=== PATIENT | female | born 1945 | race Caucasian/White ===

== ENCOUNTER 2016-08-16 17:55 | Inpatient (IN) | payer OTHER ==
[~2016-08-16] VITALS: Ht 165.1 cm; Wt 74.8 kg
--- NOTE | ~2016-08-16 | HC ---
[facility] [place] [address] CONSULTATION Name: LEISA COSTELLO Room #: 314-P [facility] IN M.R.#: [id number] Admission: 08/16/16 Attend Phys: Demar Gil MD Discharge: 08/18/16 Date of : 45 Report #: [id number] THIS REPORT FOR: //name// CC: [facility] physician/PCP Demar Welch HISTORY OF PRESENT ILLNESS: The patient is a 70-year-old white female who was admitted with double vision, blurred vision, and frequent falls. She is a little vague on how often she falls, but at least once a month. She has a history of being noncompliant with her blood pressure medications and per progress note, she has not seen her primary care physician for the last couple of years. She was noted to have a hypertensive emergency 197/112 upon admission. Neurology saw her and workup revealed an acute lacunar infarct right caudate with multiple small remote lacunar infarcts bilaterally, multiple small cerebral hemorrhages and occipital and parietal hemorrhages, all thought to be hypertensive related strokes. She was noted to have significant decreased balance, functional mobility, and ADLs and we are seeing her in rehabilitation medicine consultation. PAST MEDICAL HISTORY: Includes hypertension, tobacco abuse and recurrent falls. HABITS: Current every day smoker, 1 pack per day, smoked for 46-phlg-llyx history. No history of alcohol abuse. ALLERGIES: No known drug allergies. SOCIAL HISTORY: Lives in a house with her daughter, 2 steps in, apparently used a walker, although it sounds like she did not use it as much as she should have. Daughter is noted to be home during the day. REVIEW OF SYSTEMS: Did not offer any current complaints of chest pain, shortness of breath, or abdominal discomfort. Notes concern regarding her balance. Tends to minimizing her symptoms from what I can gather. No focal extremity pain complaints. HEENT, no complaints were verbalized. No other system complaints. PHYSICAL EXAMINATION: GENERAL: A 70-year-old white female, in no obvious distress. She is alert and pleasant. VITAL SIGNS: Temperature 98.3, pulse , respirations 16, and blood pressure 177/72. NEUROLOGIC: She is alert and pleasant. Affect a little flat. Facies appeared symmetric. EOMs, she may have some mild decreased with her gaze being conjugate. She follows basic commands without difficulty. EXTREMITIES: Functional range of motion of both upper extremities. Some mild decreased with yygexd-fq-rhcy and higher level dexterity bilaterally. Strength [facility] [address] [place] [address] CONSULTATION Name: LEISA COSTELLO Room #: 314-P [facility] IN [facility].#: [id number] Admission: 08/16/16 Attend Phys: Demar Gil MD Discharge: 08/18/16 Date of : 45 Report #: [id number] otherwise is grade 4-/5. Lower extremities, no focal calf swelling, functional range of motion with strength a grade 4-/5. DTRs are trace to 1. She might have some mild decreased coordination in the bilateral lower extremity. Sensation appeared reasonably intact to simultaneous stimulation. She is contact guard with sit to stand. She does ambulate, but needs min assist with a front-wheeled walker and was noted to have 5 slight losses of balance at left, especially with turns. In occupational therapy, she was noted to have poor standing balance with mod assist needed for upper body dressing. ASSESSMENT: A 70-year-old white female with the following problem list: 1. Multiple hypertensive related strokes. 2. Lacunar infarct, right caudate with multiple remote lacunar bilateral infarcts, small cerebral, occipital and parietal hemorrhages that are multiple. 3. Hypertensive emergency upon initial admission. 4. Tobacco abuse. 5. Noncompliance with blood pressure medication. 6. History of frequent falls at home. PLAN: The patient is a candidate and would benefit from an acute in-hospital inpatient rehabilitation stay. From a preadmission screening perspective: 1. Prior level of function is well delineated above. 2. Expect level of improvement would be for the patient to become modified independent with transfers, mobility and ADLs as well as an assessment of cognition to try to improve her overall functional level. We would anticipate a length of stay of probably at least 10 days to 2 weeks pending progress. 3. Evaluation of the patient's risk for clinical complications. She does have multiple medical comorbidities as noted above. 4. Condition that caused the need for rehabilitation is the multiple strokes. 5. Treatments needed include PT and OT 1-1/2 hours per day each five days a week throughout the duration of the acute inpatient rehabilitation stay. 6. Anticipated discharge destination would be back to the home setting. 7. Anticipated post-discharge treatments would include home healthcare therapies. 8. The patient meets diagnostic criteria for an acute in-hospital inpatient rehabilitation stay. Thank you for asking us to assist in this patient's care. By: [id number] Low Pulliam MD /nt
--- NOTE | ~2016-08-16 | EKG ---
[place] [address] [facility] [place] [address] ELECTROCARDIOGRAM REPORT Name: LEISA COSTELLO Room #: 314-P ADM IN M.R.#: [id number] Admission: 08/16/16 Attend Phys: Jessica Valenzuela MD Discharge: Date of : 45 Report #: [id number] THIS REPORT FOR: //name// [facility] ED Test Date: 2016-08-16 Test Time: 19:44:47 Pat Name: LEISA COSTELLO Department: Room: [facility] Gender: F Inside Sales: [id number] : 1945 Requested By: Larry Hanson Order Number: [id number] MD: Primo Diego Measurements Intervals [place] Rate: 70 P: 33 WI: 139 QRS: -22 QRSD: 102 T: 93 QT: 465 QTc: 502 Interpretive Statements Sinus rhythm Probable left atrial enlargement LVH with secondary repolarization abnormality Inferior infarct, old Prolonged QT interval Baseline wander in lead(s) V3 No previous ECG available for comparison Electronically Signed On 08-17-2016 8:57:23 CDT by Primo Diego [email or web address] <ELECTRONICALLY SIGNED> By: Primo Diego MD, [facility] 08/17/16 0857 43 43 Primo Diego MD, [facility] /EPI
--- NOTE | ~2016-08-16 | 2DMMODE ---
[facility] [address] [place] [address] 2 D/M-MODE ECHOCARDIOGRAM Name: LEISA COSTELLO Room #: 314-P ADM IN .R.#: [id number] Admission: 08/16/16 Attend Phys: Demar Gil MD Discharge: Date of : 45 Date of Service: 08/18/16 0931 Report #: [id number] THIS REPORT FOR: //name// APPROVED REPORT Study performed: 08/18/2016 08:30:28 EXAM: Comprehensive 2D, Doppler, and color-flow Echocardiogram Patient Location: Bedside Room #: 314 Blood Pressure: 177/72 mmHg HR: 80 bpm Other Information Study Quality: Adequate Indications CVA/TIA Hypertension/HDD Echo Enhancing Agent Indication: Rule out Shunt Agent/Amount Used: Agitated Saline 7 cc 2D Dimensions LVEF(%): 69.73 (>50%) IVSd: 14.80 (7-11mm) LVOT Diam: 19.81 (18-24mm) LVDd: 39.54 mm PWd: 12.83 (7-11mm) Ascending Aorta: 27.67 mm LVDs: 24.22 (25-40mm) IVC: 15.00 mm Aortic Root: 27.38 mm Pratt's LVEF: 69.73 % Volumes Left Atrial Volume (Systole) Single Plane 4CH: 44.49 mL Single Plane 2CH: 39.72 mL LA ESV Index: 25.00 mL/m2 Aortic Valve AoV Peak Maurilio.: 2.63 m/s AO Peak Gr.: 12.74 mmHg LV Max P.17 mmHg AO Mean Gr.: 17.49 mmHg LV Mean P.19 mmHg LV Max: 1.54 m/s [facility] [employer] [address] [place] [address] 2 D/M-MODE ECHOCARDIOGRAM Name: LEISA COSTELLO Room #: 314-P [facility] IN .R.#: [id number] Admission: 08/16/16 Attend Phys: Demar Gil MD Discharge: Date of : 45 Date of Service: 08/18/16 0931 Report #: [id number] AO V2 VTI: 570.70 mm LV Mean: 1.17 m/s JORGE (VTI): 2.06 cm2 LV V1 VTI: 381.94 mm SV (LVOT): 117.71 mL Mitral Valve E/A Ratio: 0.6 MV Decel. Time: 307.55 ms MV E Max Maurilio.: 0.81 m/s MV A Maurilio.: 1.35 m/s MV PHT: 89.19 ms Pulmonary Valve PV Peak Maurilio.: 0.91 m/s PV Peak Gr.: 3.29 mmHg Pulmonary Vein P Vein S: 46.5 m/s P Vein D: 33.5 m/s P Vein A Dur.: 30.5 m/s PVa Duration: 129 Tricuspid Valve RAP Estimate: 5.00 mmHg Left Ventricle The left ventricle is normal size. There is normal LV segmental wall motion. Moderate concentric left ventricular hypertrophy. Left ventricular systolic function is hyperdynamic. LVEF is >70%. Grade I diastolic dysfunction Right Ventricle Right ventricle is not well visualized. The right ventricular systolic function appears normal. Atria The left atrium size is normal. Right atrium is not well visualized. Aortic Valve Aortic valve is calcified. Mild aortic stenosis (peak gradient 27mm, mean 17mm). Mitral Valve The mitral valve is normal in structure. Mild mitral valve regurgitation noted. No evidence of mitral valve stenosis. Tricuspid Valve The tricuspid valve is normal in structure. There is no tricuspid [facility] [address] [place] [id number] 2 D/M-MODE ECHOCARDIOGRAM Name: LEISA COSTELLO Room #: 314-P ADM IN .R.#: [id number] Admission: 08/16/16 Attend Phys: Demar Gil MD Discharge: Date of : 45 Date of Service: 08/18/16 0931 Report #: [id number] valve regurgitation noted. There is tricuspid regurgitation. The right atrial pressure is estimated at 5 mmHg. There is no pulmonary hypertension. Pulmonic Valve The pulmonary valve is normal in structure. There is no pulmonic valvular regurgitation. Great Vessels The aortic root is normal in size. IVC is normal in size and collapses >50% with inspiration. Pericardium There is no pericardial effusion. <Conclusion> Moderate concentric left ventricular hypertrophy. There is normal LV segmental wall motion. LVEF >70%. Grade I diastolic dysfunction Aortic valve is calcified. Mild aortic stenosis (peak gradient 27mm, mean 17mm). The mitral valve is normal in structure. Mild mitral valve regurgitation There is no pericardial effusion. <ELECTRONICALLY SIGNED> By: Primo Diego MD, FACC 08/18/16930 0 0 Primo Diego MD, FACC /INF
[~2016-08-16 17:55] MED LIST: PENICILLIN VK500 M1 PO
[2016-08-16 17:59] VITALS: BP 197/120
[2016-08-16] MEDS ORDERED: OCUVITE TABLET1 EAC1 PO (18:01)
[2016-08-16] MEDS ORDERED: MUCINEX TA600 MG/TA2 PO (18:01)
[2016-08-16] MEDS ORDERED: DIUREX WATER P1 EACH PO (18:01)
[2016-08-16 20:00] LABS: ABSOLUTE NEUTROPHILS 8.3 thou/uL (1.4-8.2); BASOPHILS 0.5 % (0.0-2.0); EOSINOPHILS 1.4 % (0.0-3.0); HEMATOCRIT 44.1 % (37.0-47.0); HEMOGLOBIN 14.5 gm/dL (12.0-15.0); LYMPHOCYTES 27.7 % (24.0-44.0); MCH 28.2 pg (26.0-34.0); MCV 85.5 fL (80.0-100.0); PLATELET COUNT 300 thou/uL (150-400); POLYS 62.4 % (36.0-66.0); RBC 5.16 mil/uL (4.20-5.00); WBC 13.4 thou/uL (4.0-11.0)
[2016-08-16 20:01] LABS: MANUAL DIFF NO
[2016-08-16 20:13] LABS: CALCIUM 8.8 mg/dL (8.5-10.1); CREATININE 0.7 mg/dL (0.6-1.0); POTASSIUM 3.5 mmol/L (3.5-5.1)
[2016-08-16 20:20] LABS: ALBUMIN 3.7 g/dL (3.4-5.0); TOTAL BILIRUBIN 0.3 mg/dL (<0.1-1.0); TOTAL PROTEIN 7.4 g/dL (6.4-8.2)
[2016-08-16 20:32] LABS: PROTIME 10.6 Seconds (9.3-11.4)
[2016-08-16 20:51] LABS: URINE BILIRUBIN NEGATIVE (Negative); URINE BLOOD 1+ (Negative); URINE COLOR YELLOW; URINE GLUCOSE-RANDOM* NEGATIVE (Negative); URINE KETONES 1+ (Negative); URINE LEUKOCYTES-REFLEX NEGATIVE (Negative); URINE PROTEIN (DIPSTICK) NEGATIVE (Negative); URINE UROBILINOGEN 0.2 E.U./dl (0.2-1.0)
[2016-08-16 21:01] LABS: CASTS None Seen /LPF (None Seen); CRYSTALS None Seen /LPF (None Seen); SQUAMOUS 4-10 Moderate /LPF (0-3); URINE RBC 0-2 Rare /HPF (0-2); URINE WBC-REFLEX 6-15 Few /HPF (0-5)
[2016-08-16 22:33] VITALS: BP 187/74
[2016-08-16 23:22] VITALS: BP 176/80
[2016-08-17 00:17] LABS: TSH 1.479 uIU/mL (0.358-3.740)
[2016-08-17 00:27] VITALS: BP 156/66
[2016-08-17 03:05] VITALS: BP 147/59
[2016-08-17 07:56] LABS: CHOLESTEROL 167 mg/dL (<200); HDL CHOLESTEROL 51 mg/dL (>40); LDL CHOLESTEROL 103 mg/dL (<100); TC:HDL 3.3 Ratio (Not establshd); TRIGLYCERIDE 68 mg/dL (<150); VLDL 14 mg/dL (<40)
[2016-08-17 08:32] VITALS: BP 176/69
[2016-08-17] MEDS ORDERED: CULTURELLE1 EACH PO (13:36)
[2016-08-17] MEDS ORDERED: COQ-10100 MG PO (13:37)
[2016-08-17] MEDS ORDERED: [UNRECOGNIZED DRUG - OTHER] (13:41)
[2016-08-17 17:34] VITALS: BP 184/79
[2016-08-17 19:18] VITALS: BP 156/73
[2016-08-18 04:36] VITALS: BP 175/78
[2016-08-18 07:42] VITALS: BP 177/72
[2016-08-18 13:23] VITALS: BP 137/64
[2016-08-18] MEDS ORDERED: KEFLEX500 MG PO (13:27)
[2016-08-18] MEDS ORDERED: LIPITOR10 MG PO (13:27)
[2016-08-18] MEDS ORDERED: LISINOPRIL5 MG PO (13:27)
[2016-08-18] MEDS ORDERED: ASPIR 8181 MG PO (15:01)
== END 2016-08-18 15:15 | DRG 65 ==
LOC: ER 17:55 → 3N 21:49 → EROBS 21:49 → 3N 23:11
PROVIDERS: Nurse Practitioner; Physician Assistant; Psychiatry & Neurology Neurology
DX: I63.8 Other cerebral infarction (principal); N39.0 Urinary tract infection, site not specified; I16.1 Hypertensive emergency; I10 Essential (primary) hypertension; F17.210 Nicotine dependence, cigarettes, uncomplicated; E78.5 Hyperlipidemia, unspecified; H53.8 Other visual disturbances; W18.39XA Other fall on same level, initial encounter; Z91.14 Patient's other noncompliance with medication regimen; Z82.3 Family history of stroke; Y93.89 Activity, other specified; Y92.89 Other specified places as the place of occurrence of the external cause; Z86.73 Personal history of transient ischemic attack (TIA), and cerebral infarction without residual deficits; Y99.8 Other external cause status
CPT/HCPCS: 10096

== ENCOUNTER 2016-08-18 13:19 | Inpatient (IN) | payer OTHER ==
[~2016-08-18] VITALS: Ht 165.1 cm; Wt 76.4 kg
--- NOTE | ~2016-08-18 | H ---
[facility] [place] [place] [address] HISTORY AND PHYSICAL Name: LEISA COSTELLO Room #: 515-P ADM IN M.R.#: [id number] Admission: 08/18/16 Attend Phys: Low Pulliam MD Discharge: Date of : 45 Report #: [id number] THIS REPORT FOR: //name// CC: Low Pulliam [facility] physician/PCP DATE OF SERVICE: 08/18/2016 HISTORY OF PRESENT ILLNESS: The patient is a 70-year-old white female who was originally admitted to [facility] with blurred vision and double vision and history of frequent falls. She indicates she was falling at least once per month. There is a history of noncompliance with her blood pressure medication and she apparently had not seen her primary care physician for approximately 2 years. On admission, she was noted to have a hypertensive emergency with blood pressure 197/112. Neurology was involved and workup revealed an acute lacunar infarct of the right caudate. She also was noted to have multiple small remote lacunar infarcts bilaterally and was noted to have multiple cerebellar, occipital and parietal hemorrhages consistent with hypertensive related strokes. The patient was noted to have significant functional mobility and ADL deficits, cognitive concerns as well and has now been admitted for acute in-hospital inpatient rehabilitation. PAST MEDICAL HISTORY: Includes hypertension, tobacco abuse, and recurrent falls. HABITS: Current every day smoker, 1 pack per day, smoked for 11-tqac-cynu history. No history of alcohol abuse. ALLERGIES: No known drug allergies. SOCIAL HISTORY: Lives in a house with her daughter, 2 steps in, apparently used a walker, although it sounds like she did not use it as much as she should have. Daughter is noted to be home during the day. I did not confirm the above noted fall frequency with the daughter. MEDICATIONS: Please see the full medication listing. Each of these was individually reconciled and includes her medications, supplements, srhn-dun-rxktktke, etc. REVIEW OF SYSTEMS: No complaints of chest pain, shortness of breath or abdominal discomfort. No complaints of voiding. Did not offer any headache or HEENT complaints. Has had problems with decreasing balance. PHYSICAL EXAMINATION: GENERAL: A 70-year-old white female, in no obvious distress. She was seen earlier and was somewhat sleepy. [address] [address] HISTORY AND PHYSICAL Name: LEISA COSTELLO Room #: 515-P [facility] IN M.R.#: [id number] Admission: 08/18/16 Attend Phys: Low Pulliam MD Discharge: Date of : 45 Report #: [id number] VITAL SIGNS: Temperature 37.1, pulse 71, respirations 18, and blood pressure 168/74. HEENT: Appeared to be benign. Facies were symmetric. NEUROLOGIC: Follows basic commands without difficulty. EOMs, some mild decreased with her gaze being conjugate. EXTREMITIES: She has functional range of motion of both upper extremities. Some mild decreased nqtscg-zu-vjca and higher level dexterity bilaterally, strength otherwise is a grade 4-/5. Lower extremities, no focal calf swelling, functional range of motion with strength a grade 4-/5. DTRs are trace to 1. She has some mild decreased coordination of the bilateral lower extremities. Sensation appeared reasonably intact to simultaneous stimulation. She was noted to be contact guard with vzo-yr-kgzcx. She was able to ambulate, but has needed assistance with her balance and was noted to have frequent loss of balance when attempting to get up. There is no focal calf swelling. No distal lower extremity edema. Her feet appear warm with descent vascular supply and no neurovascular changes. ASSESSMENT: A 70-year-old white female with the following problem list: 1. Multiple hypertensive related strokes. 2. Lacunar infarct right caudate with multiple remote lacunar bilateral infarcts, small cerebral, occipital and parietal hemorrhages that are multiple. 3. Hypertensive emergency upon initial admission. 4. Tobacco abuse. 5. Noncompliance with blood pressure medication. 6. History of frequent falls at home. PLAN: The patient was admitted for an acute in-hospital inpatient rehabilitation stay. From a postadmission physician evaluation perspective, there are no relevant changes since the preadmission screening. Please see the above review of prior and current medical and functional conditions and comorbidities. Please see the patient's previous and current functional status. As far as risk of complications, she has the above noted comorbidities. Initial plan of care involves the interdisciplinary acute inpatient rehabilitation program with the goal of maximizing her functional independence, so she can hopefully return back to her prior living situation. Measurable functional goals would be for her to become modified independent at least at the walker level with mobility and ADLs as well as further assessment regarding cognition. Prognosis is reasonably good with estimated length of stay probably 10 days to 2 weeks. We will need to assess her cognitive and safety issues for returning back to the home setting. Goal is to return back home with her daughter. Potential barriers would include her decreased balance, concerns regarding safety issues and her multiple comorbidities. The patient meets diagnostic criteria for an acute in-hospital inpatient rehabilitation stay. She meets medical necessity criteria and we will have the [address] [address] HISTORY AND PHYSICAL Name: LEISA COSTELLO Room #: 515-P ADM IN M.R.#: [id number] Admission: 08/18/16 Attend Phys: Low Pulliam MD Discharge: Date of : 45 Report #: [id number] skin care consultant physicians continue to follow while she is on the rehab trujillo. She does have the tolerance for an acute inpatient rehab stay and has appropriate discharge goals back to the home setting. <ELECTRONICALLY SIGNED> By: Low Pulliam MD 08/29/16 1523 1031 1114 Low Pulliam MD /nt
--- NOTE | ~2016-08-18 | PLAN ---
[facility] [place] [address] REHAB UNIT PLAN OF CARE Name: LEISA COSTELLO Room #: 515-P ADM IN M.R.#: [id number] Admission: 08/18/16 Attend Phys: Low Pulliam MD Discharge: Date of : 45 Report #: [id number] THIS REPORT FOR: //name// CC: Low Pulliam [facility] physician/PCP The patient is seen back today in followup. She is in no distress. Temperature , pulse 64, respirations 19, blood pressure 159/76. The patient is alert. HEENT appeared to be benign. Facies are symmetric. No focal calf swelling. She is working in therapies with transfers, contact guard. She is ambulating up to 75 feet contact guard with a front-wheeled walker. We are working with her on balance issues, especially with turns. She has had a left-sided lean. Lower body dressing has been contact guard. In speech therapy, she has mild comprehensive deficits with mild expressive deficits. ASSESSMENT: 1. Multiple hypertensive related strokes. 2. Lacunar infarct right caudate with multiple remote lacunar bilateral infarcts, small cerebral occipital and parietal hemorrhages that are multiple. 3. Initial hypertensive emergency, upon prior admission. 4. Tobacco abuse. 5. Noncompliance with blood pressure medication. 6. History of frequent falls at home. PLAN: The overall plan of care is based on the preadmission screen, post-admission physician evaluation and information garnered from therapy assessments. 1. Estimated length of stay is probably 10 days to two weeks pending progress. She is progressing. 2. Medical prognosis is reasonably good. 3. Anticipated interventions includes the interdisciplinary acute inpatient rehabilitation program with PT and OT and speech working with her, rehab nursing assisting regarding medication management, skin care prophylaxis, bowel and bladder issues and nursing education. Case management is involved as well as the road consultant physicians. 4. Anticipated functional outcomes would be for the patient to become modified independent with transfers, mobility and ADLs as well as improved cognition, so that she can hopefully return back to her prior living situation. 5. Discharge destination would be back to the home setting where the patient lives with her daughter. 6. Expected therapy by discipline includes PT and OT and speech 1 hour per day each five days a week throughout the duration of the acute inpatient stay. <ELECTRONICALLY SIGNED> By: Low Pulliam MD 08/29/16 1523 0938 1135 Low Pulliam MD /nt
--- NOTE | ~2016-08-18 | HC ---
[facility] [place] [address] CONSULTATION Name: LEISA COSTELLO Room #: 515-P ADM IN M.R.#: [id number] Admission: 08/18/16 Attend Phys: Low Pulliam MD Discharge: Date of : 45 Report #: [id number] THIS REPORT FOR: //name// CC: Low Pulliam [facility] physician/PCP DATE OF SERVICE: 08/26/2016 NEUROBEHAVIORAL STATUS EXAM AGE: 70. ATTENDING PHYSICIAN: Low Pulliam MD DIE MAINTENANCE TECHNICIAN: Andrei Flanagan, PhD CLINICAL PRESENTATION: The patient is a 70-year-old female admitted to [facility] rehab unit for comprehensive inpatient rehabilitation program to improve functional mobility and activities of daily living and self-care secondary to deficits from a cerebrovascular accident. She was admitted after increasing episodes of falling. She was diagnosed with a hypertensive emergency with a blood pressure of 197/117 when she was brought into the hospital. An acute lacunar infarction in the right caudate was identified. Brain imaging also revealed multiple small remote lacunar infarctions bilaterally with multiple cerebral, occipital, and parietal hemorrhages consistent with hypertensive strokes. Significant functional mobility and ADL deficits along with cognitive concern were noted on admission. Her past medical history includes hypertension, tobacco abuse, and recurrent falls. The assessment on the rehab unit is multiple hypertensive related strokes, lacunar infarction in the right caudate with multiple remote lacunar bilateral infarctions and small cerebellar, occipital and parietal hemorrhages. Additional diagnoses include tobacco abuse, noncompliant with diabetes management, and frequent falls. Neuropsychological consultation was requested to provide assistance in the assessment of cognitive and emotional status and to provide recommendations and services. The patient reports living with her daughter prior to her admission. She is with one child. Patient is a high school graduate. She worked for the [employer] prior to her jail. She does not report a prior history of treatment for depression or anxiety and denies alcohol or drug abuse. The patient does report tobacco use and a plan to return to smoking upon her discharge. TECHNIQUES UTILIZED: Clinical interview, review of medical records, staff consultation and behavioral observation, mini mental status exam [address] [address] CONSULTATION Name: LEISA COSTELLO Room #: 515-P [facility] IN M.R.#: [id number] Admission: 08/18/16 Attend Phys: Low Pulliam MD Discharge: Date of : 45 Report #: [id number] version, clock drawing and calibrated ideational fluency assessment (letter and category fluency). EXAMINATION FINDINGS: The patient was alert and cooperative with the assessment. She accurately described events leading to her hospitalization. Patient is lacking insight into symptoms of cognitive disorder. She does not report difficulty with cognitive functioning, sleep or appetite. She states that her energy level is low and that she is feeling increased anxiety. Irritability and anxiety is reported as related to tobacco cessation. She does not report auditory or visual hallucinations. There is no evidence of aphasia. Her performance on the MMSE 2 brief version is within normal limits with a raw score of 16/16. Performance on the standard version of the MMSE 2 was within normal limits in the average range with a raw score of 26 of 30. The patient was 1/5 for serial sevens, suggesting diminished ability to sustain concentration. The patient was able to copy a simple geometric design. The patient was able to draw a clock, but had difficulty in hand placement, the hands were placed instead at 10 and 11 rather than 10 after 11 suggesting both stimulus bound effects and diminished thought organization and problem solving. Her performance in letter fluency was in the borderline range with a raw score of 11, T score of 30, and percentile rank of 2. Performance in category fluency was extremely low with a raw score of 19 and a T score of 19, which is severely impaired. Overall, total fluency was severely impairmed with a raw score of 30 and a percentile rank of less than 1. 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 RECOMMENDATIONS: The patient will benefit from a structured and supervised rehab program. The use of compensatory strategies to assist in executive functioning as well as immediate recall will be of benefit to overall adjustment. She will need assistance with management of her medication. At this time, she indicates setting up medicine herself; however, the extent of her neurocognitive deficits indicate the need for her daughter to assist with medical management. Patient is reportiong plans to resume somking and family will need to discourage use. A follow up neuropsych assessment in approximately one month may be of benefit to clarify deficits in cognition and further assess for neurodegenerative disorder. [address] [address] CONSULTATION Name: LEISA COSTELLO Room #: 515-P ADM IN M.R.#: [id number] Admission: 08/18/16 Attend Phys: Low Pulliam MD Discharge: Date of : 45 Report #: [id number] Thank you very much for allowing me to provide the consultation on this patient. <ELECTRONICALLY SIGNED> By: Andrei Flanagan, PhD 08/27/16 [id number] Andrei Flanagan, PhD /nt
[~2016-08-18 13:19] MED LIST changes: +COQ-10100 MG PO; +CULTURELLE1 EACH PO; +DIUREX WATER P1 EACH PO; +MUCINEX TA600 MG/TA2 PO; +OCUVITE TABLET1 EAC1 PO; +[UNRECOGNIZED DRUG - OTHER]
[2016-08-18] MEDS ORDERED: LIPITOR10 MG PO (13:27)
[2016-08-18] MEDS ORDERED: LISINOPRIL5 MG PO (13:27)
[2016-08-18] MEDS ORDERED: KEFLEX500 MG PO (13:27)
[2016-08-18] MEDS ORDERED: ASPIR 8181 MG PO (15:01)
[2016-08-18 15:31] VITALS: BP 179/70
[2016-08-18 16:02] VITALS: BP 179/70
[2016-08-18 21:11] VITALS: BP 147/59
[2016-08-19 04:55] VITALS: BP 168/74
[2016-08-19 16:00] VITALS: BP 166/69
[2016-08-20 05:50] VITALS: BP 168/62
[2016-08-20 16:08] VITALS: BP 157/56
[2016-08-21 05:07] VITALS: BP 162/64
[2016-08-21 08:53] VITALS: BP 159/76
[2016-08-21 16:00] VITALS: BP 158/75
[2016-08-22 04:45] LABS: ABSOLUTE NEUTROPHILS 4.5 thou/uL (1.4-8.2); BASOPHILS 0.7 % (0.0-2.0); EOSINOPHILS 3.1 % (0.0-3.0); HEMATOCRIT 39.1 % (37.0-47.0); HEMOGLOBIN 13.2 gm/dL (12.0-15.0); LYMPHOCYTES 37.7 % (24.0-44.0); MCH 28.3 pg (26.0-34.0); MCHC 33.7 g/dL (28.0-37.0); MCV 84.1 fL (80.0-100.0); MONOCYTES 8.7 % (1.0-8.0); PLATELET COUNT 249 thou/uL (150-400); POLYS 49.8 % (36.0-66.0); RBC 4.64 mil/uL (4.20-5.00); RDW 14.5 % (10.5-14.5)
[2016-08-22 04:56] LABS: MANUAL DIFF NO
[2016-08-22 05:13] VITALS: BP 179/70
[2016-08-22 06:10] VITALS: BP 168/76
[2016-08-23 04:24] VITALS: BP 152/76
[2016-08-23 07:15] VITALS: BP 170/78
[2016-08-23 16:07] VITALS: BP 162/73
[2016-08-24 04:44] VITALS: BP 151/58
[2016-08-24 06:12] LABS: ABSOLUTE NEUTROPHILS 5.3 thou/uL (1.4-8.2); BASOPHILS 0.4 % (0.0-2.0); EOSINOPHILS 2.7 % (0.0-3.0); HEMATOCRIT 38.5 % (37.0-47.0); MCH 28.1 pg (26.0-34.0); MCHC 33.8 g/dL (28.0-37.0); MCV 83.3 fL (80.0-100.0); MONOCYTES 8.4 % (1.0-8.0); PLATELET COUNT 237 thou/uL (150-400); POLYS 57.5 % (36.0-66.0); RBC 4.62 mil/uL (4.20-5.00); RDW 14.7 % (10.5-14.5); WBC 9.2 thou/uL (4.0-11.0)
[2016-08-24 06:18] LABS: MANUAL DIFF NO
[2016-08-24 06:31] LABS: CALCIUM 8.1 mg/dL (8.5-10.1); CREATININE 0.7 mg/dL (0.6-1.0); MAGNESIUM 1.8 mg/dL (1.8-2.4); POTASSIUM 3.7 mmol/L (3.5-5.1); TOTAL BILIRUBIN 0.4 mg/dL (<0.1-1.0); TOTAL PROTEIN 6.1 g/dL (6.4-8.2)
[2016-08-24 16:00] VITALS: BP 142/65
[2016-08-25 05:36] VITALS: BP 157/78
[2016-08-26 06:15] VITALS: BP 169/62
[2016-08-26 15:22] VITALS: BP 138/66
[2016-08-27 03:09] VITALS: BP 151/60
[2016-08-27 08:34] VITALS: BP 147/68
[2016-08-27 16:00] VITALS: BP 145/55
[2016-08-28 04:54] VITALS: BP 146/59
[2016-08-28 07:42] VITALS: BP 139/74
[2016-08-28 16:00] VITALS: BP 133/65
[2016-08-29 05:40] VITALS: BP 151/87
[2016-08-29 07:40] VITALS: BP 149/54
[2016-08-29 16:04] VITALS: BP 157/59
[2016-08-30 05:13] VITALS: BP 140/53
[2016-08-30 05:22] VITALS: BP 126/48
[2016-08-30 05:51] LABS: ABSOLUTE NEUTROPHILS 5.7 thou/uL (1.4-8.2); BASOPHILS 0.5 % (0.0-2.0); EOSINOPHILS 2.3 % (0.0-3.0); HEMATOCRIT 39.2 % (37.0-47.0); HEMOGLOBIN 13.1 gm/dL (12.0-15.0); MCH 27.8 pg (26.0-34.0); MCHC 33.3 g/dL (28.0-37.0); MCV 83.7 fL (80.0-100.0); MONOCYTES 8.2 % (1.0-8.0); PLATELET COUNT 225 thou/uL (150-400); RBC 4.69 mil/uL (4.20-5.00); RDW 14.8 % (10.5-14.5); WBC 9.6 thou/uL (4.0-11.0)
[2016-08-30 05:57] LABS: CREATININE 0.8 mg/dL (0.6-1.0); MANUAL DIFF NO; POTASSIUM 3.7 mmol/L (3.5-5.1)
[2016-08-30 06:02] LABS: MAGNESIUM 1.8 mg/dL (1.8-2.4)
[2016-08-30] MEDS ORDERED: NORVASC10 MG PO (12:08)
[2016-08-30] MEDS ORDERED: LISINOPRIL5 MG PO (12:08)
[2016-08-30] MEDS ORDERED: NEXIUM40 MG PO (12:08)
[2016-08-30 16:31] VITALS: BP 133/59
[2016-08-30 16:44] VITALS: BP 140/62
[2016-08-31 05:21] VITALS: BP 161/61
== END 2016-08-31 14:41 | disposition home health service (06) | DRG 65 ==
PROVIDERS: Nurse Practitioner
DX: I63.9 Cerebral infarction, unspecified (principal); I16.1 Hypertensive emergency; N39.0 Urinary tract infection, site not specified; G31.84 Mild cognitive impairment of uncertain or unknown etiology; I10 Essential (primary) hypertension; F17.210 Nicotine dependence, cigarettes, uncomplicated; I16.0 Hypertensive urgency; E83.42 Hypomagnesemia; R29.6 Repeated falls; Z79.82 Long term (current) use of aspirin; Z91.14 Patient's other noncompliance with medication regimen; Z79.899 Other long term (current) drug therapy
CPT/HCPCS: 10112